=== PATIENT | male | born 1980 | race African-American/Black ===

== ENCOUNTER 2018-08-23 11:40 | Emergency (ER) | payer MEDICAID, OTHER ==
[~2018-08-23] VITALS: Ht 177.8 cm; Wt 76.0 kg
[~2018-08-23 11:40] MED LIST: GLIMEPIRIDE; METFORMIN
[2018-08-23] MEDS ORDERED: SODIUM CHLORIDE 0.9% 1,000 ML IV ONE ×2 (11:58→17:45)
[2018-08-23] MEDS ORDERED: ONDANSETRON HCL 4MG/2ML INJ IV ONE ×3 (12:15→16:30)
[2018-08-23 13:04] LABS: CHLORIDE 104 mEq/L (98-107)
[2018-08-23 13:05] LABS: PROTHROMBIN TIME 9.6 sec (9.1-11.1)
[2018-08-23 13:22] LABS: BASOPHILS % 0.2 % (0.0-2.0); EOSINOPHILS % 0.2 % (0.0-5.0); HEMATOCRIT. 40.5 % (42.0-52.0); HEMOGLOBIN. 13.6 g/dL (14.0-18.0); LYMPHOCYTES % 28.2 % (20.0-50.0); MEAN CORPUSCULAR HEMOGLOBIN 28.8 pg (28.0-32.0); MEAN CORPUSCULAR VOLUME 85.4 fL (80.0-94.0); MONOCYTES % 6.8 % (2.0-8.0); NEUTROPHILS % 64.6 % (40.0-76.0); PLATELET 322 x1000/uL (130-400); RED BLOOD CELL COUNT 4.74 mill/uL (4.7-6.1)
[2018-08-23] MEDS ORDERED: FAMOTIDINE 20MG/2ML VIAL IV ONE (15:00)
[2018-08-23] MEDS ORDERED: METOCLOPRAMIDE HCL 10MG/2ML VIAL IV ONE (15:45)
[2018-08-23] MEDS ORDERED: DIPHENHYDRAMINE 50MG/ML VIAL IV ONE (15:45)
[2018-08-23] MEDS ORDERED: PANTOPRAZOLE SODIUM 40 MG/VIAL IV ONE (16:30)
[2018-08-23] MEDS ORDERED: MORPHINE SULFATE 4 MG/ML CPJ (NOT FOR IM USE) IV ONE (16:30)
[2018-08-23 19:41] VITALS: BP 129/85
== END 2018-08-23 20:22 | disposition home or self-care (01) ==
LOC: ER 11:58 → CANBEDREQ 21:20
DX: K21.9 Gastro-esophageal reflux disease without esophagitis (principal); I10 Essential (primary) hypertension; E11.9 Type 2 diabetes mellitus without complications; Z79.84 Long term (current) use of oral hypoglycemic drugs
CPT/HCPCS: 36415; 80053; 82962; 83690; 85025; 85610; 93005; 96361; 96374; 96375; 96376; 99285; C9113; J1200; J2270; J2405; J2765; J3490; J7030; Z7610